=== PATIENT | male | born 1985 | race Caucasian/White ===

== ENCOUNTER 2018-11-11 15:12 | Emergency (ER) | payer SELFPAY ==
[~2018-11-11] VITALS: Ht 172.7 cm; Wt 84.0 kg
[~2018-11-11 15:12] MED LIST: IBUP-1542 PO
[2018-11-11 15:31] VITALS: BP 120/80; PULSE 60; RESP 18; Ht 172.7 cm; Wt 84.0 kg
--- NOTE | 2018-11-11 16:55 | ERD ---
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 He complains of mild posterior scalp pain and neck pain after the fall and states when he fell backwards the back of his scalp struck the vertical wall behind them causing neck flexion. He denies loss of consciousness but states after the fall he had full body paresthesias which resolved after about 10 seconds. He denied weakness in his arms or legs, no decreased rehabilitation clerk strength, no blurry vision, no chest pain or shortness of breath, no vomiting, no difficulty ambulating. ROS All systems reviewed and are negative except as per history of present illness. Medications Home Meds Active Scripts Ibuprofen* (Motrin*) 600 Mg Tab, 600 MG PO Q8 PRN for PAIN AND/OR INFLAMMATION, #30 TAB Prov:KATT THOMPSON MD 11/11/18 PMhx/Soc History of Surgery: No Anesthesia Reaction: No Hx Neurological Disorder: No Hx Respiratory Disorders: No Hx Cardiac Disorders: No Hx Psychiatric Problems: No Hx Miscellaneous Medical Probl: No Hx Alcohol Use: No Hx Substance Use: No Hx Tobacco Use: No Smoking Status: Never smoker FmHx Family History: No diabetes Physical Exam Vitals Vital Signs Date Temp Pulse Resp B/P (MAP) Pulse Ox O2 O2 Flow FiO2 Time Delivery Rate 11/11/18 98.1 60 18 120/80 97 15:31 (93) Physical Exam GENERAL: Well-developed, well-nourished, well-hydrated, in no apparent distress, looks nontoxic in appearance HEENT: Moist mucous membranes, pink conjunctiva, no cervical spine tenderness or step-off deformities, extraocular movements intact without pain. NEURO: Alert and oriented 3, cranial nerves II through XII intact bilaterally, pupils equal round reactive to light, no focal deficits or facial asymmetry, sensation intact distally Strength 5/5 in upper and lower extremities bilaterally CARDIAC: Regular rate and rhythm, no murmurs rubs or gallops LUNGS: Clear bilaterally no wheezing crackles or stridor PSYCH: Normal affect without agitation or irritability Procedures/MDM CT scan of the brain was negative for acute bleed mass or shift. CT scan of the cervical spine was negative for fracture, dislocation, or subluxation of the cervical spine. I do not suspect any significant cervical spinal cord injury as his symptoms were very mild and extremely transient lasting at most for about 10 seconds. His neurologic exam was repeated by me and remains normal and he has no neurologic complaints. If he develops any neurologic symptoms he may require MR imaging of the neck although this can be coordinated by PMD on an outpatient basis. Patient feels much better at this time, and vital signs are normal, symptoms have improved. I did give strict instructions to return to the ED if symptoms continue or worsen, patient will otherwise follow-up with primary care physician. Patient understood instructions and agreed to plan. Disclaimer: Inadvertent spelling and grammatical errors are likely due to EHR/dictation software use and do not reflect on the overall quality of patient care. Also, please note that the electronic time recorded on this note does not necessarily reflect the actual time of the patient encounter. Departure Diagnosis: Primary Impression: Fall with no significant injury Encounter type: initial encounter Qualified Codes: W19.XXXA - Unspecified fall, initial encounter Additional Impressions: Neck strain Encounter type: initial encounter Qualified Codes: S16.1XXA - Strain of muscle, fascia and tendon at neck level, initial encounter Scalp contusion Encounter type: initial encounter Qualified Codes: S00.03XA - Contusion of scalp, initial encounter Condition: Good Patient Instructions: Scalp Contusion, No Wake Up, Neck Sprain/Strain KATT THOMPSON MD Nov 11, 2018 16:55
== END 2018-11-11 16:11 | disposition home or self-care (01) ==
LOC: E/R 15:12
DX: S16.1XXA Strain of muscle, fascia and tendon at neck level, initial encounter (principal); S00.03XA Contusion of scalp, initial encounter; W18.30XA Fall on same level, unspecified, initial encounter; Y92.89 Other specified places as the place of occurrence of the external cause
CPT/HCPCS: 70450; 72125